=== PATIENT | male | born 1990 | race Caucasian/White ===

== ENCOUNTER 2016-12-16 05:04 | Day surgery (SDC) | payer BC ==
--- NOTE | ~2016-12-16 | EGD ---
EGD REPORT [facility] [address] [address] NAME: ANDREA BROCK : [birth year] STATUS : [place] [facility] [place] PAT#: [id number] AGE: 26 ADM/REG DATE : 12/16/16 MR#: [id number] REPORT SERV DATE: 12/16/16 DICTATED BY: KRISTA DIAZ DATE: 12/16/16 REPORT STATUS : Draft [facility]ANS[facility]IBED BY: [facility] DATE: 12/16/16 Endoscopy Center Patient Name: Andrea Brokc Date of : 1990 Attending MD: KRISTA DIAZ MD Procedure Date No Time: 12/16/2016 Procedure: Colonoscopy Indications: Abdominal pain in the right lower quadrant, Diarrhea Referring MD: PIERRE NASCIMENTO MD Medicines: Monitored Anesthesia Care Complications: No immediate complications. Procedure: Pre-Anesthesia Assessment: - ASA Grade Assessment: II - A patient with mild systemic disease. After I obtained informed consent, the scope was passed under direct vision. Throughout the procedure, the patient's blood pressure, pulse, and oxygen saturations were monitored continuously. The CF [id number] was introduced through the anus and advanced to the terminal ileum, with identification of the appendiceal orifice and IC valve. The colonoscopy was performed without difficulty. The patient tolerated the procedure well. The quality of the bowel preparation was good. Findings: The digital rectal exam was normal. Pertinent negatives include no palpable rectal lesions. The terminal ileum appeared normal. The ascending colon appeared normal. Biopsies were taken with a cold forceps for evaluation of microscopic colitis. The sigmoid colon appeared normal. Biopsies were taken with a cold forceps for evaluation of microscopic colitis. Two sessile polyps were found in the sigmoid colon. The polyps were 3 to 4 mm in size. These polyps were removed with a cold biopsy forceps. Resection and retrieval were complete. Impression: - The examined portion of the ileum was normal. - The ascending colon is normal. Biopsied. - The sigmoid colon is normal. Biopsied. - Two 3 to 4 mm polyps in the sigmoid colon. Resected and retrieved. Recommendation: - Patient has a contact number available for emergencies. The signs and symptoms of potential delayed complications were discussed with the patient. Return to EGD REPORT [address] [address] NAME: ANDREA BROCK : [birth year] [place]US : [place] [facility] [place] [id number] AGE: 26 ADM/REG DATE : 12/16/16 MR#: [id number] REPORT SERV DATE: 12/16/16 DICTATED BY: KRISTA DIAZ DATE: 12/16/16 REPORT STATUS : Draft TRANSCRIBED BY: [employer] DATE: 12/16/16 normal activities tomorrow. Written discharge instructions were provided to the patient. - Regular diet. - Continue present medications. - Await pathology results. - Return to GI clinic in 1 month. Procedure Code(s): --- Professional --- 78508, Colonoscopy, flexible, proximal to splenic flexure; with biopsy, single or multiple Diagnosis Code(s): --- Professional --- D12.5, Benign neoplasm of sigmoid colon R10.31, Right lower quadrant pain R19.7, Diarrhea, unspecified CPT copyright 2013 [employer]. All rights reserved. The codes documented in this report are preliminary and upon paper products printer review may be revised to meet current compliance requirements. KRISTA DIAZ MD 12/16/2016 7:42 AM This report has been signed electronically. Number of Addenda: 0 Note Initiated On: 12/16/2016 7:12 AM Scope Withdrawal Time 0 hours 8 minutes 43 seconds [address] [place] [id number]
--- NOTE | ~2016-12-16 | EGD ---
EGD REPORT [facility] [address] [address] NAME: ANDREA BROCK : [birth year] [place]US : [place] [facility] [place]#: [id number] AGE: 26 ADM/REG DATE : 12/16/16 MR#: [id number] REPORT SERV DATE: 12/16/16 DICTATED BY: KRISTA DIAZ DATE: 12/16/16 REPORT STATUS : Draft [facility]ANS[facility]IBED BY: [facility] DATE: 12/16/16 Endoscopy Center Patient Name: Andrea Brock Date of : 1990 Attending MD: KRISTA DIAZ MD Procedure Date No Time: 12/16/2016 Procedure: Upper GI endoscopy Indications: Abdominal pain in the right upper quadrant, Diarrhea, Nausea Referring MD: PIERRE NASCIMENTO MD Medicines: Monitored Anesthesia Care Complications: No immediate complications. Procedure: Pre-Anesthesia Assessment: - ASA Grade Assessment: II - A patient with mild systemic disease. After obtaining informed consent, the endoscope was passed under direct vision. Throughout the procedure, the patient's blood pressure, pulse, and oxygen saturations were monitored continuously. The GIF [id number] was introduced through the mouth, and advanced to the second part of duodenum. The upper GI endoscopy was accomplished without difficulty. The patient tolerated the procedure well. Findings: The examined esophagus was normal. Patchy moderate inflammation characterized by erosions and erythema was found in the gastric antrum. Biopsies were taken with a cold forceps for histology. The cardia and gastric fundus were normal on retroflexion. The duodenal bulb and 2nd part of the duodenum were normal. Biopsies were taken with a cold forceps for histology. Impression: - Normal esophagus. - Gastritis. Biopsied. - Normal duodenal bulb and 2nd part of the duodenum. Biopsied. Recommendation: - Use Prilosec (omeprazole) 40 mg PO daily for 2 months. Procedure Code(s): --- Professional --- 70488, Esophagogastroduodenoscopy, flexible, transoral; with biopsy, single or multiple Diagnosis Code(s): --- Professional --- EGD REPORT [address] [place]. [id number] NAME: ANDREA BROCK : [birth year] STATUS : [place] [facility] [place] PAT#: [id number] AGE: 26 ADM/REG DATE : 12/16/16 MR#: [id number] REPORT SERV DATE: 12/16/16 DICTATED BY: KRISTA DIAZ DATE: 12/16/16 REPORT STATUS : Draft TRANSCRIBED BY: [employer] DATE: 12/16/16 K29.70, Gastritis, unspecified, without bleeding R10.11, Right upper quadrant pain R19.7, Diarrhea, unspecified R11.0, Nausea CPT copyright 2013 [employer]. All rights reserved. The codes documented in this report are preliminary and upon pill packer review may be revised to meet current compliance requirements. KRISTA DIAZ MD 12/16/2016 7:26 AM This report has been signed electronically. Number of Addenda: 0 Note Initiated On: 12/16/2016 7:14 AM Scope Withdrawal Time 0 hours 0 minutes [address] [place], [place] [address] [id number]
[~2016-12-16 05:04] MED LIST: LEVSINTAB PO
== END 2016-12-16 23:59 | disposition home or self-care (01) ==
LOC: DMU 05:04
PROVIDERS: Internal Medicine Gastroenterology
PROC: 0DBK8ZX Excision of Ascending Colon, Via Natural or Artificial Opening Endoscopic, Diagnostic (ICD-10-PCS; 2016-12-16)
PROC: 0DBN8ZX Excision of Sigmoid Colon, Via Natural or Artificial Opening Endoscopic, Diagnostic (ICD-10-PCS; 2016-12-16)
PROC: 0DB98ZX Excision of Duodenum, Via Natural or Artificial Opening Endoscopic, Diagnostic (ICD-10-PCS; principal; 2016-12-16 07:00)
PROC: 0DB68ZX Excision of Stomach, Via Natural or Artificial Opening Endoscopic, Diagnostic (ICD-10-PCS; 2016-12-16 07:00)
DX: K29.80 Duodenitis without bleeding (principal); K29.50 Unspecified chronic gastritis without bleeding; K63.5 Polyp of colon; I10 Essential (primary) hypertension; K76.0 Fatty (change of) liver, not elsewhere classified; F31.9 Bipolar disorder, unspecified; Z98.818 Other dental procedure status; Z79.899 Other long term (current) drug therapy
CPT/HCPCS: 88305